=== PATIENT | male | born 1955 | race Caucasian/White ===

== ENCOUNTER 2016-09-29 | Outpatient (CLI) | payer OTHER | END 2016-09-29 23:22 | disposition critical access hospital (66) | CPT/HCPCS: A0425; A0427 ==

== ENCOUNTER 2016-09-29 23:41 | Emergency (ER) | payer OTHER ==
[2016-09-30] MEDS ORDERED: ONDANSETRON 4 MG/2 ML VIAL ONE (00:11)
[2016-09-30] MEDS ORDERED: SODIUM CHLORIDE 0.9% 500 ML IV STA (00:13)
[2016-09-30] MEDS ORDERED: ONDANSETRON 4 MG/2 ML VIAL IVP STA (00:13)
[2016-09-30] MEDS ORDERED: POTASSIUM BICARB 25 MEQ TABLET PO ONE (07:09)
[2016-09-30] MEDS ORDERED: POTASSIUM BICARB 25 MEQ TABLET PO STA (07:09)
== END 2016-09-30 07:21 | disposition home or self-care (01) ==
DX: R11.2 Nausea with vomiting, unspecified (principal); R19.7 Diarrhea, unspecified; R53.1 Weakness; I10 Essential (primary) hypertension; E78.00 Pure hypercholesterolemia, unspecified; I25.2 Old myocardial infarction; J44.9 Chronic obstructive pulmonary disease, unspecified; G47.30 Sleep apnea, unspecified; E11.9 Type 2 diabetes mellitus without complications; Z79.84 Long term (current) use of oral hypoglycemic drugs; Z86.73 Personal history of transient ischemic attack (TIA), and cerebral infarction without residual deficits; Z87.891 Personal history of nicotine dependence
CPT/HCPCS: 36415; 51701; 71020; 80053; 81003; 83690; 85025; 96374; 99284; A9270

== ENCOUNTER 2016-10-14 16:25 | Outpatient (CLI) | payer MEDICARE, OTHER | END 2016-10-14 16:26 | disposition home or self-care (01) | DX: E11.9 Type 2 diabetes mellitus without complications (principal) ==

== ENCOUNTER 2016-10-20 14:30 | Outpatient (CLI) | payer MEDICARE, OTHER | END 2016-10-20 14:31 | disposition home or self-care (01) | DX: K52.9 Noninfective gastroenteritis and colitis, unspecified (principal) ==

== ENCOUNTER 2016-11-18 10:00 | Outpatient (CLI) | payer MEDICARE, OTHER | END 2016-11-18 10:01 | disposition home or self-care (01) | DX: D72.829 Elevated white blood cell count, unspecified (principal) ==

== ENCOUNTER 2016-11-26 10:22 | Outpatient (CLI) | payer MEDICARE ==
[2016-11-26] MEDS ORDERED: IOVERSOL-300 50 ML VIAL PO ONE (12:56)
[2016-11-26] MEDS ORDERED: IOPAMIDOL-300 100 ML VIAL IVP ONE (12:56)
== END 2016-11-26 10:23 | disposition home or self-care (01) ==
DX: N20.0 Calculus of kidney (principal); Q27.8 Other specified congenital malformations of peripheral vascular system; Q61.02 Congenital multiple renal cysts; E27.9 Disorder of adrenal gland, unspecified
CPT/HCPCS: 71260; 74177; Q9967

== ENCOUNTER 2016-12-08 11:54 | Outpatient (CLI) | payer MEDICARE ==
[2016-12-08] MEDS ORDERED: GADOBUTROL 15 MMOL/15 ML VIAL IVP ONE (13:44)
== END 2016-12-08 11:55 | disposition home or self-care (01) ==
DX: Q61.02 Congenital multiple renal cysts (principal); E27.9 Disorder of adrenal gland, unspecified; K76.0 Fatty (change of) liver, not elsewhere classified
CPT/HCPCS: 74183; 80053; A9585

== ENCOUNTER 2016-12-17 09:29 | Outpatient (CLI) | payer MEDICARE ==
--- NOTE | 2016-12-17 12:24 | Ultrasound Report ---
RENAL ULTRASOUND: 12/17/2016 CLINICAL INDICATION: Possible hyperdense right renal cyst on CT of 11/26/2016. TECHNIQUE: Real-time sonographic vascular imaging was performed by the machine packer through the kidney s utilizing both color-flow and Doppler spectral analysis. Multiple patient financial representative static images wer e saved for review. FINDINGS: The right kidney measures 11.4 x 5.7 x 5.8 cm. An 1.3 cm calculus is noted in the lower po le collecting system. Cortical cysts are noted, with the largest measuring 2.4 cm. No solid renal mas s is appreciated. The left kidney measures 12.8 x 5.9 x 5.0 cm. Cortical cysts are present. No hydronephrosis is seen. Prevoid, the bladder measures 13.0 x 9.9 x 7.8 cm, yielding a prevoid volume of 526 mL. Bilateral ure teral jets are visualized. Postvoid residual is 434 mL. IMPRESSION: 1. RENAL CORTICAL CYSTS. NO SOLID RENAL MASS IS APPRECIATED. 2. RIGHT NEPHROLITHIASIS. 3. A 434 mL POSTVOID RESIDUAL. JOB #: [id number] EXT JOB #:[id number]
== END 2016-12-17 09:30 | disposition home or self-care (01) ==
LOC: DI 09:29
PROVIDERS: ATTEND Physician Assistant Medical
DX: N28.1 Cyst of kidney, acquired (principal); N20.0 Calculus of kidney
CPT/HCPCS: 76770

== ENCOUNTER 2017-01-13 13:15 | Outpatient (CLI) | payer MEDICARE ==
[2017-01-13 19:19] LABS: ALBUMIN/GLOBULIN RATIO 1.3 (1.0-2.2); BILIRUBIN,TOTAL 0.5 mg/dL (0.2-1.0); CALCIUM 9.6 mg/dL (8.5-10.3); CREATININE 0.9 mg/dL (0.6-1.2); POTASSIUM 3.5 mmol/L (3.5-5.0); TOTAL PROTEIN 7.9 g/dL (6.7-8.2)
[2017-01-13 19:27] LABS: BASOPHILS % (AUTO) 0.4 %; EOSINOPHILS # (AUTO) 0.3 10^3/uL (0.0-0.7); EOSINOPHILS % (AUTO) 2.5 %; HCT - HEMATOCRIT 45.7 % (42.0-52.0); HGB - HEMOGLOBIN 15.2 g/dL (14.0-18.0); LYMPHOCYTES % (AUTO) 33.9 %; MEAN CORPUSCULAR HEMOGLOBIN 29.8 pg (27.0-31.0); MEAN CORPUSCULAR HGB CONC 33.2 g/dL (32.0-36.0); MEAN CORPUSCULAR VOLUME 89.8 fL (80.0-94.0); MEAN PLATELET VOLUME 7.5 fL (7.4-11.4); MONOCYTES % (AUTO) 8.3 %; NEUTROPHILS # (AUTO) 6.4 10^3/uL (1.5-6.6); NEUTROPHILS % (AUTO) 54.9 %; NUCLEATED RED BLOOD CELLS AUTO 0.1 /100WBC; RED BLOOD COUNT 5.09 10^6/uL (4.70-6.10); RED CELL DISTRIBUTION WIDTH 13.5 % (12.0-15.0); UNCORRECTED WHITE BLOOD COUNT 11.7 x10^3/uL; WHITE BLOOD COUNT 11.7 x10^3/uL (4.8-10.8)
== END 2017-01-13 13:16 | disposition home or self-care (01) ==
LOC: LAB.WCP 13:15
PROVIDERS: ATTEND Physician Assistant Medical
DX: E11.9 Type 2 diabetes mellitus without complications (principal); D72.829 Elevated white blood cell count, unspecified; N39.0 Urinary tract infection, site not specified
CPT/HCPCS: 36415; 80053; 85025; 87077; 87086

== ENCOUNTER 2017-04-16 12:02 | Outpatient (CLI) | payer MEDICARE ==
[2017-04-16 19:44] LABS: BUN - BLOOD UREA NITROGEN 17 mg/dL (6-20); CALCIUM 9.2 mg/dL (8.5-10.3); CARBON DIOXIDE - CO2 27 mmol/L (21-32); CHLORIDE 98 mmol/L (101-111); CHOL/HDL RATIO 3.1 (<5.0); CHOLESTEROL 119 mg/dL; CREATININE 0.7 mg/dL (0.6-1.2); GFR - MDRD 114 (>89); GLUCOSE 153 mg/dL (70-100); HDL CHOLESTEROL 39 mg/dL; HEMOGLOBIN A1C 0.88 g/dL; LDL/HDL RATIO 1.3 (<3.6); POTASSIUM 3.6 mmol/L (3.5-5.0); SODIUM 135 mmol/L (135-145); TRIGLYCERIDES 152 mg/dL; VLDL CHOLESTEROL 30 mg/dL
== END 2017-04-16 12:03 | disposition home or self-care (01) ==
LOC: LAB.WCP 12:02
PROVIDERS: ATTEND Physician Assistant Medical
DX: E11.9 Type 2 diabetes mellitus without complications (principal); E78.00 Pure hypercholesterolemia, unspecified
CPT/HCPCS: 36415; 80048; 80061; 82043; 83036

== ENCOUNTER 2017-09-10 08:00 | Outpatient (CLI) | payer MEDICARE | END 2017-09-10 08:01 | disposition home or self-care (01) | LOC: LAB.WCP 08:00 | PROVIDERS: ATTEND Physician Assistant Medical | DX: E83.42 Hypomagnesemia (principal) | CPT/HCPCS: 36415; 83735 ==

== ENCOUNTER 2017-09-28 10:12 | Outpatient (CLI) | payer MEDICARE ==
[2017-09-28 13:12] LABS: CALCIUM 9.6 mg/dL (8.5-10.3); CREATININE 0.7 mg/dL (0.6-1.2); MAGNESIUM 1.6 mg/dL (1.7-2.8)
[2017-09-28 13:25] LABS: HB2 TOTAL 15.7 g/dL; HEMOGLOBIN A1C 0.96 g/dL; HEMOGLOBIN A1C % 7.7 % (4.6-6.2)
== END 2017-09-28 10:13 | disposition home or self-care (01) ==
LOC: LAB.WCP 10:12
PROVIDERS: ATTEND Physician Assistant Medical
DX: E11.9 Type 2 diabetes mellitus without complications (principal); E83.42 Hypomagnesemia
CPT/HCPCS: 36415; 80048; 83036; 83735

== ENCOUNTER 2017-10-14 08:00 | Outpatient (CLI) | payer MEDICARE | END 2017-10-14 23:59 | disposition home or self-care (01) | LOC: LAB.WCP 08:00 | PROVIDERS: ATTEND Physician Assistant Medical | DX: L03.039 Cellulitis of unspecified toe (principal) | CPT/HCPCS: 87070; 87077; 87205 ==

== ENCOUNTER 2018-10-14 23:51 | Outpatient (CLI) | payer MEDICARE | END 2018-10-14 23:52 | disposition critical access hospital (66) | LOC: EMS 23:51 | PROVIDERS: ATTEND Surgery | DX: R53.1 Weakness (principal); R11.2 Nausea with vomiting, unspecified; R26.89 Other abnormalities of gait and mobility | CPT/HCPCS: A0425; A0427 ==

== ENCOUNTER 2018-10-15 00:08 | Emergency (ER) | payer MEDICARE ==
--- NOTE | 2018-10-15 01:00 | XRAY Report ---
Reason: fall, knee painn Procedure Date: 10/15/2018 Accession Number: [id number] / [id number] Procedure: XR - Knee 2 View BILAT CPT Code: FULL RESULT: EXAMS: 1. Right Knee Radiography 2. Left Knee Radiography EXAM DATE:10/15/2018 12:54 AM. CLINICAL HISTORY:Fall, knee pain. COMPARISON: None. TECHNIQUE: 2 views each. FINDINGS: Right Knee: Bones: No fracture seen. Joints: No dislocation. Minimal degenerative changes. No joint effusion seen. Soft Tissues: Mild soft tissue swelling. Left Knee: Bones: No fracture seen. Joints: No dislocation. Minimal degenerative changes. No joint effusion seen. Soft Tissues: Mild soft tissue swelling. IMPRESSION: No acute bony abnormality. RADIA
[2018-10-15 01:02] LABS: BASOPHILS # (AUTO) 0.1 10^3/uL (0.0-0.1); BASOPHILS % (AUTO) 1.1 %; EOSINOPHILS # (AUTO) 0.2 10^3/uL (0.0-0.7); EOSINOPHILS % (AUTO) 1.5 %; HGB - HEMOGLOBIN 13.3 g/dL (14.0-18.0); LYMPHOCYTES # (AUTO) 1.8 10^3/uL (1.5-3.5); LYMPHOCYTES % (AUTO) 13.1 %; MEAN CORPUSCULAR HEMOGLOBIN 29.7 pg (27.0-31.0); MEAN CORPUSCULAR HGB CONC 34.5 g/dL (32.0-36.0); MEAN PLATELET VOLUME 7.1 fL (7.4-11.4); MONOCYTES # (AUTO) 1.3 10^3/uL (0.0-1.0); NEUTROPHILS # (AUTO) 10.4 10^3/uL (1.5-6.6); NEUTROPHILS % (AUTO) 75.3 %; PLT - PLATELET COUNT 447 10^3/uL (130-450); RED BLOOD COUNT 4.49 10^6/uL (4.70-6.10); RED CELL DISTRIBUTION WIDTH 13.1 % (12.0-15.0); WHITE BLOOD COUNT 13.9 x10^3/uL (4.8-10.8)
[2018-10-15 01:11] LABS: ALBUMIN/GLOBULIN RATIO 1.3 (1.0-2.2); BILIRUBIN,TOTAL 0.4 mg/dL (0.2-1.0); CALCIUM 8.6 mg/dL (8.5-10.3); CREATININE 0.7 mg/dL (0.6-1.2)
[2018-10-15] MEDS ORDERED: POTASSIUM CHLORIDE 20 MEQ TABLET PO STA (01:30)
--- NOTE | 2018-10-15 02:26 | ED Physician Documentation ---
History of Present Illness - Stated complaint Stated Complaint: GLF - Chief complaint Chief Complaint: General - Additonal information Additional information: 62-year-old male who was sent in from the half-way after falling and striking both of his knees.The patient was unable to get up secondary to the pain in his knees. The patient does report feeling generally weak today. The patient denies head injury, headache, neck pain, torso trauma or upper extremity trauma. The patient reports feeling generally weak but is nondescript. The patient denies chest pain, shortness of breath, cough, fevers, dysuria, hematuria, flank pain. Symptoms are described as moderate. The patient did get nauseated and vomit today. Review of Systems Constitutional: denies: Fever Eyes: denies: Discharge Ears: denies: Ear pain Throat: denies: Sore throat Cardiac: denies: Chest pain / pressure Respiratory: denies: Dyspnea GI: denies: Abdominal Pain : denies: Dysuria Skin: denies: Rash Musculoskeletal: reports: Extremity pain Neurologic: reports: Generalized weakness PD PAST MEDICAL HISTORY - Past Medical History Past Medical History: Yes Cardiovascular: Hypertension, High cholesterol, [place], Other Respiratory: COPD, Sleep apnea, CPAP use Neuro: CVA Endocrine/Autoimmune: Type 2 diabetes - Past Surgical History Past Surgical History: Yes General: Appendectomy, Other - Present Medications Home Medications: Ambulatory Orders Medication Instructions Recorded Confirmed Atenolol 100 mg PO DAILY 02/07/15 10/15/18 Chlorthalidone 25 mg PO DAILY 02/07/15 10/15/18 Clopidogrel Bisulfate [Plavix] 75 mg PO DAILY 02/07/15 10/15/18 Metformin HCl 1,000 mg PO BIDWM 02/07/15 10/15/18 Amitriptyline [Elavil] 50 mg PO QPM 07/31/15 10/15/18 Lisinopril 10 mg PO DAILY 07/31/15 10/15/18 Potassium Chloride 20 meq PO TIDWM 07/31/15 10/15/18 Simvastatin 80 mg PO QPM 07/31/15 10/15/18 Insulin Glargine [Lantus Solostar] 10 unit SUBQ DAILY PM 02/02/18 10/15/18 Glimepiride [Amaryl] 0 mg PO BID 10/15/18 10/15/18 - Allergies Allergies/Adverse Reactions: Allergies Allergy/AdvReac Type Severity Reaction Status Date / Time erythromycin base Allergy Hives Verified 10/15/18 00:14 - Social History Does the pt smoke?: No Smoking Status: Former smoker Does the pt drink ETOH?: No Does the pt have substance abuse?: No - Immunizations Immunizations are current?: Yes - POLST Patient has POLST: No PD ED PE NORMAL - General General: Alert and oriented X 3, No acute distress - HEENT HEENT: Atraumatic, PERRL, EOMI, Ears normal - Neck Neck: No bony TTP - Cardiac Cardiac: RRR - Respiratory Respiratory: No respiratory distress - Abdomen Abdomen: Soft, Non tender - Derm Derm: Normal color - Extremities Extremities: No deformity, Normal ROM s pain. No: No tenderness to palpate (The patient has no tenderness of the upper extremity joints, the patient does have tenderness of the bilateral knees, there is no deformities and the patient has normal range of motion of the lower extremities.) - Neuro Neuro: Alert and oriented X 3, Normal speech Results - Vitals Vitals: Vital Signs - 24 hr 10/15/18 10/15/18 10/15/18 00:10 00:17 01:50 Temperature 37.0 C Heart Rate 86 86 92 Respiratory 16 16 Rate Blood Pressure 129/79 134/79 H O2 Saturation 96 95 Oxygen O2 Source [With Activity] Room air O2 Source [Without Activity] Room air O2 Source Room air - Labs Labs: Laboratory Tests 10/15/18 10/15/18 10/15/18 00:55 00:55 01:22 WBC 13.9 H RBC 4.49 L Hgb 13.3 L Hct 38.7 L MCV 86.0 MCH 29.7 MCHC 34.5 RDW 13.1 Plt Count 447 MPV 7.1 L Neut # (Auto) 10.4 H Lymph # (Auto) 1.8 [place] # (Auto) 1.3 H Eos # (Auto) 0.2 Baso # (Auto) 0.1 Absolute Nucleated RBC 0.00 Nucleated RBC % 0.0 Sodium 127 L Potassium 2.9 L Chloride 89 L Carbon Dioxide 24 Anion Gap 14.0 H BUN 14 Creatinine 0.7 Estimated GFR (MDRD) 114 Glucose 212 H Calcium 8.6 Total Bilirubin 0.4 AST 39 ALT 39 Alkaline Phosphatase 56 Total Protein 7.0 Albumin 4.0 Globulin 3.0 Albumin/Globulin Ratio 1.3 Lipase 21 L Influenza A (Rapid) Negative Influenza B (Rapid) Negative - Rads (name of study) XR knee b/l Radiology: Final report received, See rad report PD MEDICAL DECISION MAKING - ED course ED course: The patient has chronic hyponatremia and Hypokalemia, both of which do not require admission to the hospital. Presently, on reevaluation the patient is resting comfortably and appears appropriate for discharge and ongoing outpatient management. I discussed the findings and plan and the patient understands and agrees. I discussed warning signs and recommended returning to the emergency department for any worsening or any concerns Departure - Departure Disposition: 01 Home, Self Care Clinical Impression: Weakness, Hypokalemia, Hyponatremia Fall Qualifiers: Encounter type: initial encounter Qualified Code(s): W19.XXXA - Unspecified fall, initial encounter Knee pain, bilateral Qualifiers: Chronicity: acute Qualified Code(s): M25.561 - Pain in right knee Condition: Good Instructions: Hypokalemia Dc, Hyponatremia Dc, Diet High Potassium Dc, ED Contusion Lower Ext Follow-Up: Heaven Baker PA-C [Primary Care Provider] - Within 1 week Comments: Please return to the emergency department for worsening symptoms or any concerns
[2018-10-15 03:18] VITALS: BP 130/75
== END 2018-10-15 03:57 | disposition home or self-care (01) ==
LOC: EDUNIT# → ED 00:08
DX: R53.1 Weakness (principal); E87.1 Hypo-osmolality and hyponatremia; E87.6 Hypokalemia; M25.561 Pain in right knee; I10 Essential (primary) hypertension; E78.00 Pure hypercholesterolemia, unspecified; I25.2 Old myocardial infarction; E11.9 Type 2 diabetes mellitus without complications; Z79.4 Long term (current) use of insulin; Z86.73 Personal history of transient ischemic attack (TIA), and cerebral infarction without residual deficits; Z87.891 Personal history of nicotine dependence
CPT/HCPCS: 36415; 73565; 80053; 83690; 85025; 87275; 87276; 93005; 99283; A9270

== ENCOUNTER 2018-10-31 18:51 | Outpatient (CLI) | payer SELFPAY | END 2018-10-31 18:52 | disposition EMS.NT | LOC: EMS 18:51 | PROVIDERS: ATTEND Surgery | DX: Z03.89 Encounter for observation for other suspected diseases and conditions ruled out (principal) ==

== ENCOUNTER 2019-08-08 21:49 | Outpatient (CLI) | payer SELFPAY | END 2019-08-08 21:50 | disposition EMS.NT | LOC: EMS 21:49 | PROVIDERS: ATTEND Surgery | DX: M54.5 Low back pain (principal); W01.0XXA Fall on same level from slipping, tripping and stumbling without subsequent striking against object, initial encounter; Y92.099 Unspecified place in other non-institutional residence as the place of occurrence of the external cause ==

== ENCOUNTER 2019-08-11 22:22 | Outpatient (CLI) | payer SELFPAY | END 2019-08-11 22:23 | disposition EMS.NT | LOC: EMS 22:22 | PROVIDERS: ATTEND Surgery | DX: Z03.89 Encounter for observation for other suspected diseases and conditions ruled out (principal) ==

== ENCOUNTER 2019-09-18 23:00 | Outpatient (CLI) | payer SELFPAY | END 2019-09-18 23:01 | disposition EMS.NT | LOC: EMS 23:00 | PROVIDERS: ATTEND Surgery | DX: Z03.89 Encounter for observation for other suspected diseases and conditions ruled out (principal) ==

== ENCOUNTER 2019-10-19 19:08 | Outpatient (CLI) | payer MEDICARE | END 2019-10-19 19:09 | disposition critical access hospital (66) | LOC: EMS 19:08 | PROVIDERS: ATTEND Surgery | DX: R47.81 Slurred speech (principal); R29.810 Facial weakness | CPT/HCPCS: A0425; A0429 ==

== ENCOUNTER 2019-10-19 19:27 | Emergency (ER) | payer MEDICARE ==
--- NOTE | 2019-10-19 19:31 | ED Physician Documentation ---
History of Present Illness - Stated complaint Stated Complaint: ? STROKE - History obtained from History obtained from: Patient, Caregiver (The patient is a 63-year-old male who presents to the ER with slurred speech. Patient was with his caregiver tonight when he had sudden onset at 6:45 PM of slurred speech and weakness. The caregiver then brought the patient to the ER for further evaluation. 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 He is chronically wheelchair-bound.EMS reports blood sugar was 220 prior to arrival he is an insulin-dependent diabetic.) Review of Systems Unable to obtain: AMS PD PAST MEDICAL HISTORY - Past Medical History Cardiovascular: Hypertension, High cholesterol, [place], Other Respiratory: COPD, Sleep apnea, CPAP use Neuro: CVA Endocrine/Autoimmune: Type 2 diabetes - Past Surgical History Past Surgical History: Yes General: Appendectomy, Other - Present Medications Home Medications: Ambulatory Orders Medication Instructions Recorded Confirmed Chlorthalidone 25 mg PO DAILY 02/07/15 10/15/18 Clopidogrel Bisulfate [Plavix] 75 mg PO DAILY 02/07/15 10/15/18 Metformin HCl 1,000 mg PO BIDWM 02/07/15 10/15/18 atenoloL [Atenolol] 100 mg PO DAILY 02/07/15 10/15/18 Amitriptyline [Elavil] 50 mg PO QPM 07/31/15 10/15/18 Potassium Chloride 20 meq PO TIDWM 07/31/15 10/15/18 Simvastatin 80 mg PO QPM 07/31/15 10/15/18 lisinopriL [Lisinopril] 10 mg PO DAILY 07/31/15 10/15/18 Insulin Glargine [Lantus Solostar] 10 unit SUBQ DAILY PM 02/02/18 10/15/18 Glimepiride [Amaryl] 0 mg PO BID 10/15/18 10/15/18 - Allergies Allergies/Adverse Reactions: Allergies Allergy/AdvReac Type Severity Reaction Status Date / Time erythromycin base Allergy Hives Verified 10/19/19 19:37 - Social History Does the pt smoke?: No Smoking Status: Former smoker Does the pt drink ETOH?: No Does the pt have substance abuse?: No - Immunizations Immunizations are current?: Yes - POLST Patient has POLST: No PD ED PE NORMAL - Vitals Vital signs reviewed: Yes - General General: No acute distress, Well developed/nourished, Other (The patient is minimally responsive is lethargic has slurred speech no obvious facial droop he is not alert is disoriented to person time and place.) - HEENT HEENT: Atraumatic, PERRL, Moist mucous membranes - Neck Neck: Supple, no meningeal sign, No JVD - Cardiac Cardiac: RRR, No murmur, Strong equal pulses - Respiratory Respiratory: No respiratory distress, Clear bilaterally - Abdomen Abdomen: Normal bowel sounds, Soft, Non tender, Non distended, No organomegaly - Male Male : Other (Chronic indwelling Hood catheter) - Back Back: No spinal TTP - Derm Derm: Warm and dry, No rash - Extremities Extremities: No deformity, Other - Neuro Neuro: Alert and oriented X 3, student records coordinator 2-12 intact, No motor deficit, No sensory deficit, Other (some mild delayed speech but after reevaluating has clear speech with no facial droop, no unilateral weakness. NIH 1 for mild dysphasia.) - Psych Psych: Normal mood, Normal affect Results - Vitals Vitals: Vital Signs - 24 hr 10/19/19 10/19/19 10/19/19 19:26 19:58 20:22 Temperature 36.6 C Heart Rate 81 79 81 Respiratory 18 18 18 Rate Blood Pressure 127/74 121/71 131/71 H O2 Saturation 97 98 98 10/19/19 10/20/19 10/20/19 21:32 00:00 01:20 Temperature Heart Rate 84 70 90 Respiratory 17 16 16 Rate Blood Pressure 128/70 133/71 H 107/56 L O2 Saturation 98 97 96 10/20/19 03:33 Temperature Heart Rate Respiratory 16 Rate Blood Pressure O2 Saturation Oxygen O2 Source [] Room air O2 Source [] Room air O2 Source Room air - EKG (time done) 19:30 Rate: Other (no stemi) - Labs Labs: Laboratory Tests 10/19/19 10/19/19 10/19/19 20:12 20:12 20:12 WBC 13.6 H RBC 4.37 L Hgb 13.4 L Hct 38.3 L MCV 87.6 MCH 30.7 MCHC 35.0 RDW 12.5 Plt Count 566 H MPV 8.6 Neut # (Auto) 8.2 H Lymph # (Auto) 3.6 H [place] # (Auto) 1.1 H Eos # (Auto) 0.5 Baso # (Auto) 0.1 Absolute Nucleated RBC 0.00 Nucleated RBC % 0.0 PT 13.9 H INR 1.2 APTT 29.0 Sodium 130 L Potassium 2.9 L Chloride 90 L Carbon Dioxide 27 Anion Gap 13.0 BUN 12 Creatinine 0.7 Estimated GFR (MDRD) 114 Glucose 195 H Lactic Acid Calcium 8.6 Total Bilirubin 0.2 AST 42 ALT 50 Alkaline Phosphatase 43 Total Creatine Kinase 161 B-Natriuretic Peptide Total Protein 7.3 Albumin 4.0 Globulin 3.3 Albumin/Globulin Ratio 1.2 Lipase 23 TSH Urine Color Urine Clarity Urine pH Ur Specific [place] Urine Protein Urine Glucose (UA) Urine Ketones Urine Occult Blood Urine Nitrite Urine Bilirubin Urine Urobilinogen Ur Leukocyte Esterase Urine RBC Urine WBC Ur Squamous Epith Cells Amorphous Sediment Urine Bacteria Ur Microscopic Review Urine Culture Comments Salicylates < 6.0 Acetaminophen < 10 L Ur Phencyclidine Scrn U Methamphetamines Scrn Urine Cocaine Screen U Cannabinoids Screen Ethyl Alcohol < 5.0 10/19/19 10/19/19 10/19/19 20:12 20:12 20:12 WBC RBC Hgb Hct MCV MCH MCHC RDW Plt Count MPV Neut # (Auto) Lymph # (Auto) [place] # (Auto) Eos # (Auto) Baso # (Auto) Absolute Nucleated RBC Nucleated RBC % PT INR APTT Sodium Potassium Chloride Carbon Dioxide Anion Gap BUN Creatinine Estimated GFR (MDRD) Glucose Lactic Acid 2.5 H Calcium Total Bilirubin AST ALT Alkaline Phosphatase Total Creatine Kinase B-Natriuretic Peptide 10 Total Protein Albumin Globulin Albumin/Globulin Ratio Lipase TSH 0.77 Urine Color Urine Clarity Urine pH Ur Specific [place] Urine Protein Urine Glucose (UA) Urine Ketones Urine Occult Blood Urine Nitrite Urine Bilirubin Urine Urobilinogen Ur Leukocyte Esterase Urine RBC Urine WBC Ur Squamous Epith Cells Amorphous Sediment Urine Bacteria Ur Microscopic Review Urine Culture Comments Salicylates Acetaminophen Ur Phencyclidine Scrn U Methamphetamines Scrn Urine Cocaine Screen U Cannabinoids Screen Ethyl Alcohol 10/19/19 20:13 WBC RBC Hgb Hct MCV MCH MCHC RDW Plt Count MPV Neut # (Auto) Lymph # (Auto) [place] # (Auto) Eos # (Auto) Baso # (Auto) Absolute Nucleated RBC Nucleated RBC % PT INR APTT Sodium Potassium Chloride Carbon Dioxide Anion Gap BUN Creatinine Estimated GFR (MDRD) Glucose Lactic Acid Calcium Total Bilirubin AST ALT Alkaline Phosphatase Total Creatine Kinase B-Natriuretic Peptide Total Protein Albumin Globulin Albumin/Globulin Ratio Lipase TSH Urine Color LIGHT YELLOW Urine Clarity HAZY Urine pH 7.0 Ur Specific [place] <=1.005 Urine Protein NEGATIVE Urine Glucose (UA) NEGATIVE Urine Ketones NEGATIVE Urine Occult Blood NEGATIVE Urine Nitrite NEGATIVE Urine Bilirubin NEGATIVE Urine Urobilinogen 0.2 (NORMAL) Ur Leukocyte Esterase MODERATE H Urine RBC 3 Urine WBC 4-5 Ur Squamous Epith Cells MOD Squamous H Amorphous Sediment Marked Urine Bacteria Rare Ur Microscopic Review INDICATED Urine Culture Comments NOT INDICATED Salicylates Acetaminophen Ur Phencyclidine Scrn NEGATIVE U Methamphetamines Scrn NEGATIVE Urine Cocaine Screen NEGATIVE U Cannabinoids Screen NEGATIVE Ethyl Alcohol PD MEDICAL DECISION MAKING - ED course Complexity details: reviewed results, re-evaluated patient (23:00 Patient reexamined, he is now awake, alert, oriented he has clear speech he moves all extremities with no gross Neurological deficit.I did explain to the patient is results of imaging and labs and showed that there is no signs of an acute stroke had an extensive conversation with the neurologist at [facility] neurology, Dr. Varghese Who states "I absolutely not accept this patient" and advises to send this paient home to have a non emergent MRI of the brain. I explained this to the patient, the patient has a NIH of 0 currently and is agreeable to be sent back home. ), considered differential (TIA, CVA, metabolic encephalopathy. ), d/w patient, other - Consults Consults: Consulted (name) (23:00 DR. JARRELL. No technical system analyst available. patient cannot be admitted here. ), Discussed case with (23:[address] Varghese the neurologist at [facility] who will not accept this patient and states to send this patient home and can follow up as an outpatient to get non emergent MRI. ) - Critical Care Time(min): 30 Time Includes: Direct patient care, Review records, Reassess patient, Document c are, Coordinate care, Medical consult, See progress note Data interpretation: Labs, Pulse ox, CXR Procedures included in critical care time: Peripheral IV Departure - Departure Disposition: 01 Home, Self Care Clinical Impression: TIA (transient ischemic attack) Condition: Fair Instructions: TIA Follow-Up: COCO SARKAR [Primary Care Provider] - Tomorrow
[2019-10-19] MEDS ORDERED: IOVERSOL 320 100 ML VIAL IVP ONE ×2 (19:43→20:07)
--- NOTE | 2019-10-19 20:10 | CT Report ---
Reason: stroke Procedure Date: 10/19/2019 Accession Number: [id number] / [id number] Procedure: CT - Head W/O Stroke Protocol CPT Code: Final Report FULL RESULT: EXAM: CT HEAD EXAM DATE: 10/19/2019 07:53 PM. CLINICAL HISTORY: 53-year-old presenting with slurred speech. Evaluate for intracranial pathology. COMPARISON: None. TECHNIQUE: Multiaxial CT images were obtained from the foramen magnum to the vertex. Reformats: Sagittal and coronal. IV contrast: None. In accordance with CT protocol optimization, one or more of the following dose reduction techniques were utilized for this exam: automated exposure control, adjustment of mA and/or KV based on patient size, or use of iterative reconstructive technique. FINDINGS: Parenchyma: No acute parenchymal hemorrhage, mass, or midline shift. There is large volume encephalomalacia and gliosis involving the right temporal lobe extending to the right temporal parietal region with involvement of the right parietal lobe. There is small to moderate volume encephalomalacia and gliosis of the left frontal lobe. There are additional mild bilateral areas of white matter hypoattenuation seen that are age indeterminate but appear chronic. There is no convincing CT evidence of acute infarct. Extraaxial Spaces: Sulci and cisterns appear prominent but appropriate for the extent of volume loss. No subdural or epidural collections identified. Ventricles: Ex vacuo dilatation of the atrium trigone of the right lateral ventricle. No evidence of hydrocephalus. No evidence of intra-ventricular hemorrhage. Sinuses and Orbits: The orbits appear normal. Minimal mucosal thickening of the left sphenoid sinus. Mastoid air cells and middle ear cavities appear clear. Bones: No evidence of fracture or calvarial defect. Other: Vascular calcifications of the cavernous ICA segments. IMPRESSION: 1. No definite acute infarct seen. If there is clinical concern for acute stroke or if symptoms persist, an MR brain could be considered to evaluate small or subtle pathology. ASPECTS: 10 right/10 left. 2. No acute intracranial hemorrhage, mass, hydrocephalus, or midline shift. 3. Large right MCA territory encephalomalacia and gliosis as well as small to moderate left MCA territory encephalomalacia and gliosis likely representing regions of prior infarct. Additional white matter changes seen that appear chronic suggesting potential sequela of chronic small vessel ischemic disease. RADIA The critical test notification system was initiated by Dr. Eduar Ayala at 08:08 PM on 10/19/2019. The above critical test findings were discussed with Mook Huynh by Dr. Eduar Ayala at 08:11 PM on 10/19/2019.
[2019-10-19 20:18] LABS: MUDS CUTOFF CONCENTRATIONS CUTOFF CONC BELOW:
[2019-10-19 20:18] LABS: BASOPHILS # (AUTO) 0.1 10^3/uL (0.0-0.1); BASOPHILS % (AUTO) 0.7 %; EOSINOPHILS # (AUTO) 0.5 10^3/uL (0.0-0.7); EOSINOPHILS % (AUTO) 3.8 %; HGB - HEMOGLOBIN 13.4 g/dL (14.0-18.0); LYMPHOCYTES # (AUTO) 3.6 10^3/uL (1.5-3.5); LYMPHOCYTES % (AUTO) 26.3 %; MEAN CORPUSCULAR HEMOGLOBIN 30.7 pg (27.0-31.0); MEAN CORPUSCULAR VOLUME 87.6 fL (80.0-94.0); MEAN PLATELET VOLUME 8.6 fL (7.4-11.4); MONOCYTES # (AUTO) 1.1 10^3/uL (0.0-1.0); NEUTROPHILS # (AUTO) 8.2 10^3/uL (1.5-6.6); NEUTROPHILS % (AUTO) 60.4 %; PLT - PLATELET COUNT 566 10^3/uL (130-450); RED BLOOD COUNT 4.37 10^6/uL (4.70-6.10); RED CELL DISTRIBUTION WIDTH 12.5 % (12.0-15.0); WHITE BLOOD COUNT 13.6 x10^3/uL (4.8-10.8)
[2019-10-19 20:22] LABS: BILIRUBIN,URINE NEGATIVE (NEGATIVE); GLUCOSE, URINE (UA) NEGATIVE (NEGATIVE); KETONES,URINE (UA) NEGATIVE (NEGATIVE); LEUKOCYTE ESTERASE, URINE MODERATE (NEGATIVE); NITRITE,URINE NEGATIVE (NEGATIVE); OCCULT BLOOD,URINE NEGATIVE (NEGATIVE); PROTEIN,URINE NEGATIVE (NEGATIVE); UROBILINOGEN,URINE 0.2 (NORMAL) E.U./dL (NORMAL)
[2019-10-19 20:24] LABS: INR 1.2 (0.8-1.2); PT - PROTHROMBIN TIME 13.9 secs (9.9-12.6)
--- NOTE | 2019-10-19 20:24 | XRAY Report ---
Reason: stroke Procedure Date: 10/19/2019 Accession Number: [id number] / [id number] Procedure: XR - Chest 1 View X-Ray CPT Code: 86401 Final Report FULL RESULT: EXAM: CHEST RADIOGRAPHY EXAM DATE: 10/19/2019 08:05 PM. CLINICAL HISTORY: Stroke. COMPARISON: CHEST 2 VIEW PA/LAT 09/30/2016 12:26 AM. TECHNIQUE: 1 view. FINDINGS: Lungs/Pleura: No focal opacities evident. No pleural effusion. No pneumothorax. Mediastinum: Within exam limitations, the cardiomediastinal contour is normal. Other: None. IMPRESSION: Negative chest. RADIA
--- NOTE | 2019-10-19 20:29 | CT Report ---
Reason: L sided facial droop Procedure Date: 10/19/2019 Accession Number: [id number] / [id number] Procedure: CT - ANGIO HEAD W/WO CPT Code: Final Report FULL RESULT: EXAM: CT ANGIOGRAM HEAD AND NECK. CT SCAN HEAD WITH CONTRAST. EXAM DATE: 10/19/2019 07:59 PM. CLINICAL HISTORY: 63-year-old with history of prior stroke presenting with left-sided facial droop. Evaluate for intracranial pathology or vascular pathology. COMPARISON: Noncontrast CT head 10/19/2019. TECHNIQUE: Routine axial helical CTA imaging was performed from the aortic arch through the [place]. Routine axial CT imaging of the head was performed prior to and following contrast administration. Reconstructions: Routine multiplanar 3D MIP reconstructions. IV contrast: 80 mL Optiray 320. NASCET Criteria are used for stenosis measurements. In accordance with CT protocol optimization, one or more of the following dose reduction techniques were utilized for this exam: automated exposure control, adjustment of mA and/or KV based on patient size, or use of iterative reconstructive technique. FINDINGS: CT SCAN HEAD: Parenchyma: No acute parenchymal hemorrhage, mass, or midline shift. There is large volume encephalomalacia and gliosis involving the right temporal lobe extending to the right temporal parietal region with involvement of the right parietal lobe. There is small to moderate volume encephalomalacia and gliosis of the left frontal lobe. There are additional mild bilateral areas of white matter hypoattenuation seen that are age indeterminate but appear chronic. There is no convincing CT evidence of acute infarct. No abnormal postcontrast enhancement. Extraaxial Spaces: Sulci and cisterns appear prominent but appropriate for the extent of volume loss. No subdural or epidural collections identified. Ventricles: Ex vacuo dilatation of the atrium trigone of the right lateral ventricle. No evidence of hydrocephalus. No evidence of intra-ventricular hemorrhage. Sinuses and Orbits: The orbits appear normal. Minimal mucosal thickening of the left sphenoid sinus. Mastoid air cells and middle ear cavities appear clear. Bones: No evidence of fracture or calvarial defect. Other: Vascular calcifications of the cavernous ICA segments. CT ANGIOGRAM HEAD AND NECK: There is atherosclerotic plaque involving the aortic arch with no high-grade stenosis or dissection seen. 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 There is common origin to the carotid arteries. RIGHT: Common Carotid Artery: Patent without significant stenosis. Carotid Bulb: There is minimal atherosclerotic plaque at the carotid bifurcation. Stenosis at the bifurcation by NASCET criteria: No significant stenosis. Internal Carotid Artery: There is vascular plaque involving the cervical ICA as well as tortuosity of the cervical ICA with no high-grade stenosis or dissection seen. There is vascular plaque involving the cavernous ICA segment with no high-grade stenosis seen. No evidence of aneurysm along the intracranial ICA. External Carotid Artery: Unremarkable. Vertebral Artery: Patent without significant stenosis. No evidence of dissection. No aneurysm. Anterior Cerebral Artery: Patent without significant stenosis, aneurysm, or vascular malformation. Middle Cerebral Artery: The M1 and M2 segments appear normal. There is diminutive appearance to distal MCA vessels leading to region of encephalomalacia and gliosis. This is likely chronic. No aneurysm. Posterior Cerebral Artery: Patent without significant stenosis, aneurysm, or vascular malformation. Posterior Communicating Artery: Not definitively seen. No aneurysm. LEFT: Common Carotid Artery: Patent without significant stenosis. Carotid Bulb: There is minimal atherosclerotic plaque at the carotid bifurcation. Stenosis at the bifurcation by NASCET criteria: No significant stenosis. Internal Carotid Artery: Tortuosity of the cervical ICA with no high-grade stenosis or dissection seen. Vascular calcifications of the cavernous ICA segment with no high-grade stenosis seen. No evidence of aneurysm along the intracranial ICA. External Carotid Artery: Unremarkable. Vertebral Artery: The V1 through V3 segments appear patent with no high-grade stenosis seen. There is vascular calcifications involving intradural V4 segment with no high-grade stenosis seen. No evidence of dissection. No aneurysm. Anterior Cerebral Artery: Patent without significant stenosis, aneurysm, or vascular malformation. Middle Cerebral Artery: The M1 and M2 segments appear normal. There is diminutive appearance to M3 frontal polar branch leading to area of encephalomalacia and gliosis. This is likely chronic. No aneurysm. Posterior Cerebral Artery: Patent without significant stenosis, aneurysm, or vascular malformation. Posterior Communicating Artery: Not definitively seen. No aneurysm. CENTRAL: Anterior Communicating Artery: Patent. No aneurysm. Basilar Artery: Patent without significant stenosis. No aneurysm. DURAL VENOUS SINUSES AND MAJOR CENTRAL VEINS: Patent. OTHER: The visualized pharynx and larynx appear normal. The major salivary glands appear normal. The visualized thyroid appears normal. No cervical lymphadenopathy. No necrotic lymph nodes. Soft tissues of the neck appear normal. Pleural-parenchymal scarring of the visualized lung apices. Minimal emphysematous changes. No acute fracture or traumatic subluxation. Multilevel degenerative changes. No suspicious osseous lesion seen. IMPRESSION: CT SCAN HEAD: 1. No definite acute infarct seen. If there is clinical concern for acute stroke or if symptoms persist, an MR brain could be considered to evaluate small or subtle pathology. ASPECTS: 10 right/10 left. 2. No acute intracranial hemorrhage, mass, hydrocephalus, or midline shift. 3. Large right MCA territory encephalomalacia and gliosis as well as small to moderate left MCA territory encephalomalacia and gliosis likely representing regions of prior infarct. Additional white matter changes seen that appear chronic suggesting potential sequela of chronic small vessel ischemic disease. CT ANGIOGRAM NECK: 1. The vasculature of the neck demonstrates no high-grade stenosis or definite dissection. CT ANGIOGRAM HEAD: 1. No large vessel occlusion. 2. No aneurysm. No significant stenosis. RADIA The call report notification system was initiated by Dr. Eduar Ayala at 08:27 PM on 10/19/2019. The above call report findings were discussed with Mook Huynh by Dr. Eduar Ayala at 08:31 PM on 10/19/2019.
--- NOTE | 2019-10-19 20:29 | CT Report ---
Reason: L sided facial droop, L neck pain Procedure Date: 10/19/2019 Accession Number: [id number] / [id number] Procedure: CT - ANGIO NECK W CPT Code: Final Report FULL RESULT: EXAM: CT ANGIOGRAM HEAD AND NECK. CT SCAN HEAD WITH CONTRAST. EXAM DATE: 10/19/2019 07:59 PM. CLINICAL HISTORY: 63-year-old with history of prior stroke presenting with left-sided facial droop. Evaluate for intracranial pathology or vascular pathology. COMPARISON: Noncontrast CT head 10/19/2019. TECHNIQUE: Routine axial helical CTA imaging was performed from the aortic arch through the [place]. Routine axial CT imaging of the head was performed prior to and following contrast administration. Reconstructions: Routine multiplanar 3D MIP reconstructions. IV contrast: 80 cc Optiray 320. NASCET Criteria are used for stenosis measurements. In accordance with CT protocol optimization, one or more of the following dose reduction techniques were utilized for this exam: automated exposure control, adjustment of mA and/or KV based on patient size, or use of iterative reconstructive technique. FINDINGS: CT SCAN HEAD: Parenchyma: No acute parenchymal hemorrhage, mass, or midline shift. There is large volume encephalomalacia and gliosis involving the right temporal lobe extending to the right temporal parietal region with involvement of the right parietal lobe. There is small to moderate volume encephalomalacia and gliosis of the left frontal lobe. There are additional mild bilateral areas of white matter hypoattenuation seen that are age indeterminate but appear chronic. There is no convincing CT evidence of acute infarct. No abnormal postcontrast enhancement. Extraaxial Spaces: Sulci and cistern appear prominent but appropriate for the extent of volume loss. No subdural or epidural collections identified. Ventricles: Ex vacuo dilatation of the atria and trigone of the right lateral ventricle. No evidence of hydrocephalus. No evidence of intra-ventricular hemorrhage. Sinuses and Orbits: The orbits appear normal. Minimal mucosal thickening of the left sphenoid sinus. Mastoid air cells and middle ear cavities appear clear. Bones: No evidence of fracture or calvarial defect. Other: Vascular calcifications of the cavernous ICA segments. CT ANGIOGRAM HEAD AND NECK: There is atherosclerotic plaque involving the aortic arch with no high-grade stenosis or dissection seen. 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 There is common origin to the carotid arteries. RIGHT: Common Carotid Artery: Patent without significant stenosis. Carotid Bulb: There is minimal atherosclerotic plaque at the carotid bifurcation. Stenosis at the bifurcation by NASCET criteria: No significant stenosis. Internal Carotid Artery: There is vascular plaque involving the cervical ICA as well as tortuosity of the cervical ICA with no high-grade stenosis or dissection seen. There is vascular plaque involving the cavernous space segment with no high-grade stenosis seen. No evidence of aneurysm along the intracranial ICA. External Carotid Artery: Unremarkable. Vertebral Artery: Patent without significant stenosis. No evidence of dissection. No aneurysm. Anterior Cerebral Artery: Patent without significant stenosis, aneurysm, or vascular malformation. Middle Cerebral Artery: The M1 and M2 segments appear normal. There is diminutive appearance to distal MCA vessels leading to region of encephalomalacia and gliosis. This is likely chronic. No aneurysm. Posterior Cerebral Artery: Patent without significant stenosis, aneurysm, or vascular malformation. Posterior Communicating Artery: Not definitively seen. No aneurysm. LEFT: Common Carotid Artery: Patent without significant stenosis. Carotid Bulb: There is minimal atherosclerotic plaque at the carotid bifurcation. Stenosis at the bifurcation by NASCET criteria: No significant stenosis. Internal Carotid Artery: Tortuosity of the cervical ICA with no high-grade stenosis or dissection seen. Vascular calcifications of the cavernous ICA segment with no high-grade stenosis seen. No evidence of aneurysm along the intracranial ICA. External Carotid Artery: Unremarkable. Vertebral Artery: The V1 through V3 segments appear patent with no high-grade stenosis seen. There is vascular calcification involving intradural V4 segment with no high-grade stenosis seen. No evidence of dissection. No aneurysm. Anterior Cerebral Artery: Patent without significant stenosis, aneurysm, or vascular malformation. Middle Cerebral Artery: The M1 and M2 segments appear normal. There is diminutive appearance to M3 frontal polar branch leading to area of encephalomalacia and gliosis. This is likely chronic. No aneurysm. Posterior Cerebral Artery: Patent without significant stenosis, aneurysm, or vascular malformation. Posterior Communicating Artery: Not definitively seen. No aneurysm. CENTRAL: Anterior Communicating Artery: Patent. No aneurysm. Basilar Artery: Patent without significant stenosis. No aneurysm. DURAL VENOUS SINUSES AND MAJOR CENTRAL VEINS: Patent. OTHER: The visualized pharynx and larynx appear normal. The major salivary glands appear normal. The visualized thyroid appears normal. No cervical lymphadenopathy. No necrotic lymph nodes. Soft tissues of the neck appear normal. Pleural-parenchymal scarring of the visualized lung apices. Minimal emphysematous changes. No acute fracture or traumatic subluxation. Multilevel degenerative changes. No suspicious osseous lesion seen. IMPRESSION: CT SCAN HEAD: 1. No definite acute infarct seen. If there is clinical concern for acute stroke or if symptoms persist, an MR brain could be considered to evaluate small or subtle pathology. ASPECTS: 10 right/10 left. 2. No acute intracranial hemorrhage, mass, hydrocephalus, or midline shift. 3. Large right MCA territory encephalomalacia and gliosis as well as small to moderate left MCA territory encephalomalacia and gliosis likely representing regions of prior infarct. Additional white matter changes seen that appear chronic suggesting potential sequela of chronic small vessel ischemic disease. CT ANGIOGRAM NECK: 1. The vasculature of the neck demonstrates no high-grade stenosis or definite dissection. CT ANGIOGRAM HEAD: 1. No large vessel occlusion. 2. No aneurysm. No significant stenosis. RADIA The call report notification system was initiated by Dr. Eduar Ayala at 08:27 PM on 10/19/2019. The above call report findings were discussed with Mook Huynh by Dr. Eduar Ayala at 08:31 PM on 10/19/2019.
[2019-10-19 20:30] LABS: CLARITY,URINE HAZY (CLEAR)
[2019-10-19 20:31] LABS: AMPHETAMINE SCREEN,URINE NEGATIVE (NEGATIVE); BENZODIAZEPINES SCREEN, URINE NEGATIVE (NEGATIVE); COCAINE SCREEN URINE NEGATIVE (NEGATIVE); METHADONE SCREEN, URINE NEGATIVE (NEGATIVE); METHAMPHETAMINES SCREEN, URINE NEGATIVE (NEGATIVE); OPIATE SCREEN, URINE NEGATIVE (NEGATIVE); OXYCODONE SCREEN, URINE NEGATIVE (NEGATIVE); PROPOXYPHENE SCREEN, URINE NEGATIVE (NEGATIVE); TRICYCLIC ANTIDEPRESSANT,URINE POSITIVE (NEGATIVE)
[2019-10-19 20:37] LABS: ACETAMINOPHEN < 10 ug/mL (10-30); ALBUMIN/GLOBULIN RATIO 1.2 (1.0-2.2); ALKALINE PHOSPHATASE 43 IU/L (42-121); ALT ALANINE AMINOTRANSFERASE 50 IU/L (10-60); AST ASPARTATE AMINOTRANSFERASE 42 IU/L (10-42); BILIRUBIN,TOTAL 0.2 mg/dL (0.2-1.0); BUN - BLOOD UREA NITROGEN 12 mg/dL (6-20); CALCIUM 8.6 mg/dL (8.5-10.3); CARBON DIOXIDE - CO2 27 mmol/L (21-32); CHLORIDE 90 mmol/L (101-111); CK- CREATINE KINASE 161 IU/L (22-269); CREATININE 0.7 mg/dL (0.6-1.2); GFR - MDRD 114 (>89); GLUCOSE 195 mg/dL (70-100); LIPASE 23 U/L (22-51); SALICYLATE < 6.0 mg/dL; SODIUM 130 mmol/L (135-145); TOTAL PROTEIN 7.3 g/dL (6.7-8.2)
[2019-10-19 20:40] LABS: AMORPHOUS SEDIMENT,UR Marked /LPF; BACTERIA,URINE Rare /HPF (None Seen); RBC,URINE 3 /HPF (0-5); SQUAMOUS EPITHELIAL CELL,UR MOD Squamous (<= Few)
[2019-10-20 01:22] VITALS: BP 107/56
== END 2019-10-20 06:17 | disposition home or self-care (01) ==
LOC: EDUNIT# → ED 19:27
DX: G45.9 Transient cerebral ischemic attack, unspecified (principal); I10 Essential (primary) hypertension; E11.9 Type 2 diabetes mellitus without complications; Z79.4 Long term (current) use of insulin; Z87.891 Personal history of nicotine dependence
CPT/HCPCS: 36415; 70450; 70496; 70498; 71045; 80053; 81001; 82550; 83605; 83690; 83880; 84443; 85025; 85610; 85730; 93005; 99285; 99291; Q9967; 80306; 80307; 80320; 80329; 81003; 87086

== ENCOUNTER 2019-10-20 06:15 | Outpatient (CLI) | payer MEDICARE | END 2019-10-20 06:16 | disposition home or self-care (01) | LOC: EMS 06:15 | PROVIDERS: ATTEND Surgery | DX: R53.1 Weakness (principal) | CPT/HCPCS: A0425; A0429 ==

== ENCOUNTER 2019-10-22 10:18 | Emergency (ER) | payer MEDICARE ==
--- NOTE | 2019-10-22 10:42 | ED Physician Documentation ---
PD HPI MALE - Stated complaint Stated Complaint: LEAKING CATHITER - Chief complaint Chief Complaint: General - History obtained from History obtained from: Patient - History of Present Illness Timing - onset: Today, Last night Timing - details: Abrupt onset (he had hartmann for past 1 1/2 months due to retention. Is to see Uroogist; saw PMD yesterday without change in therapy. Noted urine coming around catheter last night. No urine out in hartmann bag.) Associated symptoms: Hartmann problem (no urine out and feeling full bladder feeling.) Recently seen: Clinic Review of Systems Constitutional: denies: Fever, Chills Nose: denies: Rhinorrhea / runny nose, Congestion Throat: denies: Sore throat Respiratory: denies: Cough GI: denies: Nausea, Vomiting : reports: Unable to Void Skin: denies: Rash, Lesions PD PAST MEDICAL HISTORY - Past Medical History Cardiovascular: Hypertension, High cholesterol, [place], Other Respiratory: COPD, Sleep apnea, CPAP use Neuro: CVA Endocrine/Autoimmune: Type 2 diabetes GI: None : Other HEENT: Other Psych: None Musculoskeletal: None Derm: None - Past Surgical History Past Surgical History: Yes General: Appendectomy, Other - Present Medications Home Medications: Ambulatory Orders Medication Instructions Recorded Confirmed Chlorthalidone 25 mg PO DAILY 02/07/15 10/15/18 Clopidogrel Bisulfate [Plavix] 75 mg PO DAILY 02/07/15 10/15/18 Metformin HCl 1,000 mg PO BIDWM 02/07/15 10/15/18 atenoloL [Atenolol] 100 mg PO DAILY 02/07/15 10/15/18 Amitriptyline [Elavil] 50 mg PO QPM 07/31/15 10/15/18 Potassium Chloride 20 meq PO TIDWM 07/31/15 10/15/18 Simvastatin 80 mg PO QPM 07/31/15 10/15/18 lisinopriL [Lisinopril] 10 mg PO DAILY 07/31/15 10/15/18 Insulin Glargine [Lantus Solostar] 10 unit SUBQ DAILY PM 02/02/18 10/15/18 Glimepiride [Amaryl] 0 mg PO BID 10/15/18 10/15/18 - Allergies Allergies/Adverse Reactions: Allergies Allergy/AdvReac Type Severity Reaction Status Date / Time erythromycin base Allergy Hives Verified 10/22/19 10:26 - Social History Does the pt smoke?: No Smoking Status: Former smoker Does the pt drink ETOH?: No Does the pt have substance abuse?: No - Immunizations Immunizations are current?: Yes - POLST Patient has POLST: No PD ED PE NORMAL - Vitals Vital signs reviewed: Yes - General General: Alert and oriented X 3, Well developed/nourished - Neck Neck: Supple, no meningeal sign, No adenopathy - Cardiac Cardiac: RRR, No murmur - Respiratory Respiratory: Clear bilaterally - Abdomen Abdomen: Soft, No organomegaly, Other (bladder fullness and tenderness without percussion nor rebound tender. Bladder scanner about [address] and not draining. 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 Hartmann in place. ) - Back Back: No CVA TTP - Derm Derm: Normal color Results - Vitals Vitals: Vital Signs - 24 hr 10/22/19 10/22/19 10/22/19 10:26 10:45 12:52 Temperature 36.8 C 36.5 C 37.1 C Heart Rate 82 82 77 Respiratory 18 20 18 Rate Blood Pressure 142/68 H 111/60 136/73 H O2 Saturation 98 96 96 Oxygen O2 Source [With Activity] Room air O2 Source [Without Activity] Room air O2 Source Room air - Labs Labs: Laboratory Tests 10/22/19 12:25 Urine Color YELLOW Urine Clarity CLOUDY Urine pH 7.0 Ur Specific [place] 1.015 Urine Protein NEGATIVE Urine Glucose (UA) NEGATIVE Urine Ketones NEGATIVE Urine Occult Blood NEGATIVE Urine Nitrite NEGATIVE Urine Bilirubin NEGATIVE Urine Urobilinogen 0.2 (NORMAL) Ur Leukocyte Esterase MODERATE H Urine RBC 0-5 Urine WBC 11-25 H Ur Squamous Epith Cells RARE Squamous Urine Bacteria Many H Ur Microscopic Review INDICATED Urine Culture Comments INDICATED PD MEDICAL DECISION MAKING - ED course Complexity details: considered differential (he would prefer catheter to stay out, so pulled the clogged one and gave voiding trial, but unable to urinate himself and residual is about 350ml by bladder scanner. New hartmann placed by nursing with good output and relief of bladder pain. Will need to see Urologist and have bladder training/etc.), d/w patient Departure - Departure Disposition: 01 Home, Self Care Clinical Impression: Urinary retention Blocked urinary catheter Qualifiers: Encounter type: initial encounter Qualified Code(s): T83.098A - Other mechanical complication of other urinary catheter, initial encounter Condition: Stable Record reviewed to determine appropriate education?: Yes Instructions: ED Catheter Care Hartmann Follow-Up: COCO SARKAR [Primary Care Provider] - Comments: Catheter care as previous. Continue usual medicines. Follow-up with your primary care and urology regarding further care of the catheter and treatment plan for subsequent eventual removal. Discharge Date/Time: 10/22/19 13:01
[2019-10-22] MEDS ORDERED: LIDOCAINE 2% URO-JET 5 ML SYRINGE UR STA (11:59)
[2019-10-22 12:47] LABS: BILIRUBIN,URINE NEGATIVE (NEGATIVE); GLUCOSE, URINE (UA) NEGATIVE (NEGATIVE); KETONES,URINE (UA) NEGATIVE (NEGATIVE); LEUKOCYTE ESTERASE, URINE MODERATE (NEGATIVE); NITRITE,URINE NEGATIVE (NEGATIVE); OCCULT BLOOD,URINE NEGATIVE (NEGATIVE); PROTEIN,URINE NEGATIVE (NEGATIVE); UROBILINOGEN,URINE 0.2 (NORMAL) E.U./dL (NORMAL)
[2019-10-22 12:48] LABS: CLARITY,URINE CLOUDY (CLEAR)
[2019-10-22 12:52] VITALS: BP 136/73
[2019-10-22 12:56] LABS: BACTERIA,URINE Many /HPF (None Seen); RBC,URINE 0-5 /HPF (0-5); SQUAMOUS EPITHELIAL CELL,UR RARE Squamous (<= Few)
== END 2019-10-22 13:01 | disposition home or self-care (01) ==
LOC: ED 10:18
DX: T83.091A Other mechanical complication of indwelling urethral catheter, initial encounter (principal); Y84.6 Urinary catheterization as the cause of abnormal reaction of the patient, or of later complication, without mention of misadventure at the time of the procedure; R33.9 Retention of urine, unspecified; I10 Essential (primary) hypertension; E11.9 Type 2 diabetes mellitus without complications; Z79.4 Long term (current) use of insulin; Z86.73 Personal history of transient ischemic attack (TIA), and cerebral infarction without residual deficits; Z79.02 Long term (current) use of antithrombotics/antiplatelets; Z87.891 Personal history of nicotine dependence
CPT/HCPCS: 51702; 51798; 81001; 81003; 87086; 87181; 99282; 99283

== ENCOUNTER 2019-11-07 07:36 | Emergency (ER) | payer MEDICARE ==
--- NOTE | 2019-11-07 08:38 | ED Physician Documentation ---
PD HPI MALE - Stated complaint Stated Complaint: CATHETER LEAKING - Chief complaint Chief Complaint: General - History obtained from History obtained from: Patient - History of Present Illness Timing - onset: Today Timing - duration: Hours Timing - details: Gradual onset, Still present Associated symptoms: Indwelling catheter, Hartmann problem PD HPI MALE CONTRIB FACTORS: Indwelling catheter Similar symptoms before: Diagnosis (clogged hartmann) Recently seen: Emergency Dept - Additional information Additional information: 64-year-old male with a history of multiple CVAs, hypertension, type 2 diabetes and COPD has developed urinary retention and he has had an indwelling Hartmann catheter for the past 2 months. He was in the emergency department 2 weeks ago with a similar presentation where his catheter her urine is leaking around the catheter and he has bladder discomfort and there is no urine being produced. He does see a urologist at the [facility] and there is a plan to have a TURP done indeterminate in the future. He was not treated for infection at the direction of the urologist. Review of Systems Constitutional: denies: Fever, Chills, Myalgias Eyes: reports: Other (legally blind) Nose: denies: Congestion Throat: denies: Sore throat Cardiac: denies: Chest pain / pressure Respiratory: denies: Cough GI: denies: Vomiting : reports: Hartmann Problem PD PAST MEDICAL HISTORY - Past Medical History Past Medical History: Yes Cardiovascular: Hypertension, High cholesterol, [place], Other Respiratory: COPD, Sleep apnea, CPAP use Neuro: CVA Endocrine/Autoimmune: Type 2 diabetes GI: None : Other HEENT: Other Psych: None Musculoskeletal: None Derm: None - Past Surgical History Past Surgical History: Yes General: Appendectomy, Other - Present Medications Home Medications: Ambulatory Orders Medication Instructions Recorded Confirmed Chlorthalidone 25 mg PO DAILY 02/07/15 10/15/18 Clopidogrel Bisulfate [Plavix] 75 mg PO DAILY 02/07/15 10/15/18 Metformin HCl 1,000 mg PO BIDWM 02/07/15 10/15/18 atenoloL [Atenolol] 100 mg PO DAILY 02/07/15 10/15/18 Amitriptyline [Elavil] 50 mg PO QPM 07/31/15 10/15/18 Potassium Chloride 20 meq PO TIDWM 07/31/15 10/15/18 Simvastatin 80 mg PO QPM 07/31/15 10/15/18 lisinopriL [Lisinopril] 10 mg PO DAILY 07/31/15 10/15/18 Insulin Glargine [Lantus Solostar] 10 unit SUBQ DAILY PM 02/02/18 10/15/18 Glimepiride [Amaryl] 0 mg PO BID 10/15/18 10/15/18 Ciprofloxacin HCl [Cipro] 500 mg PO BID #14 tablet 11/07/19 - Allergies Allergies/Adverse Reactions: Allergies Allergy/AdvReac Type Severity Reaction Status Date / Time erythromycin base Allergy Hives Verified 11/07/19 07:48 - Social History Does the pt smoke?: No Smoking Status: Never smoker Does the pt drink ETOH?: No Does the pt have substance abuse?: No - Immunizations Immunizations are current?: Yes - POLST Patient has POLST: No PD ED PE NORMAL - Vitals Vital signs reviewed: Yes - General General: Alert and oriented X 3, No acute distress, Well developed/nourished - HEENT HEENT: Atraumatic - Cardiac Cardiac: RRR, No murmur - Respiratory Respiratory: No respiratory distress, Clear bilaterally - Abdomen Abdomen: Soft, Other (mild suprapubic tenderness ) - Back Back: No CVA TTP, No spinal TTP - Derm Derm: Normal color, Warm and dry, No rash - Neuro Neuro: Alert and oriented X 3, Normal speech Eye Opening: Spontaneous Motor: Obeys Commands Verbal: Oriented GCS Score: 15 - Psych Psych: Normal mood, Normal affect Results - Vitals Vitals: Vital Signs - 24 hr 11/07/19 11/07/19 07:48 09:00 Temperature 36.4 C L Heart Rate 73 71 Respiratory 18 16 Rate Blood Pressure 124/60 98/65 O2 Saturation 97 97 Oxygen O2 Source [With Activity] Room air O2 Source [Without Activity] Room air O2 Source Room air - Labs Labs: Laboratory Tests 11/07/19 09:21 Urine Color YELLOW Urine Clarity CLOUDY Urine pH 8.0 H Ur Specific [place] 1.010 Urine Protein NEGATIVE Urine Glucose (UA) NEGATIVE Urine Ketones NEGATIVE Urine Occult Blood MODERATE H Urine Nitrite POSITIVE H Urine Bilirubin NEGATIVE Urine Urobilinogen 0.2 (NORMAL) Ur Leukocyte Esterase LARGE H Ur Microscopic Review INDICATED Urine Culture Comments Not Reportable PD MEDICAL DECISION MAKING - ED course Complexity details: reviewed old records, reviewed results, re-evaluated patient, considered differential, d/w patient ED course: 64-year-old male with multiple CVAs who is wheelchair-bound and detention resident has an indwelling Hartmann catheter in place that is clogged with sediment this catheter is removed and replaced. This is the second time in 2 weeks that the catheter is been clogged with sediment and the patient does have known infection. Today we will treat with antibiotic. The patient does not appear septic or ill from the infection. Departure - Departure Disposition: 01 Home, Self Care Clinical Impression: Blocked urinary catheter Qualifiers: Encounter type: initial encounter Qualified Code(s): T83.098A - Other mechanical complication of other urinary catheter, initial encounter Urinary tract infection associated with catheterization of urinary tract Qualifiers: Indwelling urinary catheter type: indwelling urethral catheter Encounter type: initial encounter Qualified Code(s): T83.511A - Infection and inflammatory reaction due to indwelling urethral catheter, initial encounter Instructions: ED Catheter Care Hartmann, ED Retention Urinary Male, ED UTI Cystitis Male Follow-Up: C[facility] SARKAR [Primary Care Provider] - Prescriptions: Ciprofloxacin HCl [Cipro] 500 mg PO BID #14 tablet
[2019-11-07 09:54] LABS: BILIRUBIN,URINE NEGATIVE (NEGATIVE); GLUCOSE, URINE (UA) NEGATIVE (NEGATIVE); KETONES,URINE (UA) NEGATIVE (NEGATIVE); LEUKOCYTE ESTERASE, URINE LARGE (NEGATIVE); NITRITE,URINE POSITIVE (NEGATIVE); OCCULT BLOOD,URINE MODERATE (NEGATIVE); PROTEIN,URINE NEGATIVE (NEGATIVE); UROBILINOGEN,URINE 0.2 (NORMAL) E.U./dL (NORMAL)
[2019-11-07 09:55] LABS: CLARITY,URINE CLOUDY (CLEAR)
[2019-11-07 10:06] LABS: BACTERIA,URINE Moderate /HPF (None Seen); SQUAMOUS EPITHELIAL CELL,UR NONE SEEN (<= Few); WBC CLUMPS,URINE PRESENT
[2019-11-07 10:28] VITALS: BP 116/74
== END 2019-11-07 10:28 | disposition home or self-care (01) ==
LOC: ED 07:36
DX: T83.511A Infection and inflammatory reaction due to indwelling urethral catheter, initial encounter (principal); T83.098A Other mechanical complication of other urinary catheter, initial encounter; I10 Essential (primary) hypertension; E11.9 Type 2 diabetes mellitus without complications; Z79.4 Long term (current) use of insulin
CPT/HCPCS: 81001; 81003; 87077; 87086; 87181; 99283; 99284

== ENCOUNTER 2019-11-28 12:56 | Outpatient (CLI) | payer MEDICARE | END 2019-11-28 12:57 | disposition critical access hospital (66) | LOC: EMS 12:56 | PROVIDERS: ATTEND Surgery | DX: R53.1 Weakness (principal) | CPT/HCPCS: A0425; A0429 ==

== ENCOUNTER 2019-11-28 13:16 | Emergency (ER) | payer MEDICARE ==
[2019-11-28 13:51] LABS: BASOPHILS # (AUTO) 0.1 10^3/uL (0.0-0.1); BASOPHILS % (AUTO) 0.6 %; EOSINOPHILS # (AUTO) 0.4 10^3/uL (0.0-0.7); EOSINOPHILS % (AUTO) 3.5 %; HGB - HEMOGLOBIN 13.7 g/dL (14.0-18.0); LYMPHOCYTES # (AUTO) 3.3 10^3/uL (1.5-3.5); LYMPHOCYTES % (AUTO) 26.2 %; MEAN CORPUSCULAR HEMOGLOBIN 30.6 pg (27.0-31.0); MEAN CORPUSCULAR HGB CONC 34.3 g/dL (32.0-36.0); MEAN CORPUSCULAR VOLUME 89.3 fL (80.0-94.0); MEAN PLATELET VOLUME 8.9 fL (7.4-11.4); MONOCYTES # (AUTO) 0.8 10^3/uL (0.0-1.0); MONOCYTES % (AUTO) 6.8 %; NEUTROPHILS # (AUTO) 7.7 10^3/uL (1.5-6.6); NEUTROPHILS % (AUTO) 62.3 %; PLT - PLATELET COUNT 579 10^3/uL (130-450); RED BLOOD COUNT 4.48 10^6/uL (4.70-6.10); RED CELL DISTRIBUTION WIDTH 13.2 % (12.0-15.0); WHITE BLOOD COUNT 12.4 x10^3/uL (4.8-10.8)
[2019-11-28 14:06] LABS: ALBUMIN/GLOBULIN RATIO 1.2 (1.0-2.2); BILIRUBIN,TOTAL 0.6 mg/dL (0.2-1.0); CALCIUM 8.6 mg/dL (8.5-10.3); CREATININE 0.8 mg/dL (0.6-1.2); TOTAL PROTEIN 7.4 g/dL (6.7-8.2)
[2019-11-28] MEDS ORDERED: SODIUM CHLORIDE 0.9% 1,000 ML IV ONE (14:16)
--- NOTE | 2019-11-28 14:18 | ED Physician Documentation ---
History of Present Illness - Stated complaint Stated Complaint: WEAKNESS - Chief complaint Chief Complaint: General - History obtained from History obtained from: Patient - History of Present Illness Timing: Chronic Pain level max: 0 Pain level now: 0 - Additonal information Additional information: 64-year-old male lives at [facility]. He states he has become more and more weak over the past several months. Nothing acute today. He states that [facility] was concerned so they called 911 to have him brought to the emergency department. No fevers. No vomiting. No cough. No abdominal pain. No focal neurological deficits. He uses a wheelchair most of the time. Has a chronic indwelling catheter. Nothing makes it better or worse. No new medications. No medication changes. Review of Systems Constitutional: denies: Fever, Chills Cardiac: denies: Chest pain / pressure Respiratory: denies: Cough GI: denies: Vomiting, Diarrhea : reports: Other (Chronic indwelling catheter) Skin: denies: Rash Musculoskeletal: denies: Neck pain, Back pain Neurologic: denies: Headache PD PAST MEDICAL HISTORY - Past Medical History Cardiovascular: Hypertension, High cholesterol, [place], Other Respiratory: COPD, Sleep apnea, CPAP use Neuro: CVA Endocrine/Autoimmune: Type 2 diabetes GI: None : Other HEENT: Other Psych: None Musculoskeletal: None Derm: None - Past Surgical History Past Surgical History: Yes General: Appendectomy, Other - Present Medications Home Medications: Ambulatory Orders Medication Instructions Recorded Confirmed Chlorthalidone 25 mg PO DAILY 02/07/15 10/15/18 Clopidogrel Bisulfate [Plavix] 75 mg PO DAILY 02/07/15 10/15/18 Metformin HCl 1,000 mg PO BIDWM 02/07/15 10/15/18 atenoloL [Atenolol] 100 mg PO DAILY 02/07/15 10/15/18 Amitriptyline [Elavil] 50 mg PO QPM 07/31/15 10/15/18 Potassium Chloride 20 meq PO TIDWM 07/31/15 10/15/18 Simvastatin 80 mg PO QPM 07/31/15 10/15/18 lisinopriL [Lisinopril] 10 mg PO DAILY 07/31/15 10/15/18 Insulin Glargine [Lantus Solostar] 10 unit SUBQ DAILY PM 02/02/18 10/15/18 Glimepiride [Amaryl] 0 mg PO BID 10/15/18 10/15/18 Ciprofloxacin HCl [Cipro] 500 mg PO BID #14 tablet 11/07/19 Cefdinir 300 mg PO BID #20 capsule 11/28/19 - Allergies Allergies/Adverse Reactions: Allergies Allergy/AdvReac Type Severity Reaction Status Date / Time erythromycin base Allergy Hives Verified 11/28/19 13:31 - Social History Does the pt smoke?: No Smoking Status: Never smoker Does the pt drink ETOH?: No Does the pt have substance abuse?: No - Immunizations Immunizations are current?: Yes - POLST Patient has POLST: No PD ED PE NORMAL - Vitals Vital signs reviewed: Yes - General General: Alert and oriented X 3, No acute distress, Well developed/nourished - HEENT HEENT: PERRL, Moist mucous membranes - Neck Neck: Supple, no meningeal sign - Cardiac Cardiac: RRR, Strong equal pulses - Respiratory Respiratory: No respiratory distress, Clear bilaterally - Abdomen Abdomen: Soft, Non tender, Non distended - Back Back: No spinal TTP - Derm Derm: Warm and dry, No rash - Extremities Extremities: No calf tenderness / cord - Neuro Neuro: Alert and oriented X 3, No sensory deficit, Other (Decreased strength, equal bilateral lower extremity.) Eye Opening: Spontaneous Motor: Obeys Commands Verbal: Oriented GCS Score: 15 - Psych Psych: Normal mood, Normal affect Results - Vitals Vitals: Vital Signs - 24 hr 11/28/19 11/28/19 11/28/19 13:31 14:38 16:08 Temperature 36.9 C 36.5 C Heart Rate 77 72 77 Respiratory 17 16 16 Rate Blood Pressure 112/87 H 111/69 106/67 O2 Saturation 94 93 98 11/28/19 18:00 Temperature 36.9 C Heart Rate 77 Respiratory 15 Rate Blood Pressure 107/65 O2 Saturation 95 Oxygen O2 Source [] Room air O2 Source [] Room air O2 Source Room air - EKG (time done) 1323 Rate: Rate (enter#) (79) Rhythm: NSR [place]: Normal Intervals: Normal MS QRS: Normal Ischemia: Normal ST segments - Labs Labs: Laboratory Tests 11/28/19 11/28/19 11/28/19 13:22 13:28 13:28 WBC 12.4 H RBC 4.48 L Hgb 13.7 L Hct 40.0 L MCV 89.3 MCH 30.6 MCHC 34.3 RDW 13.2 Plt Count 579 H MPV 8.9 Neut # (Auto) 7.7 H Lymph # (Auto) 3.3 [place] # (Auto) 0.8 Eos # (Auto) 0.4 Baso # (Auto) 0.1 Absolute Nucleated RBC 0.00 Nucleated RBC % 0.0 Sodium 131 L Potassium 3.0 L Chloride 93 L Carbon Dioxide 26 Anion Gap 12.0 BUN 14 Creatinine 0.8 Estimated GFR (MDRD) 97 Glucose 181 H Calcium 8.6 Phosphorus 4.0 Magnesium 1.5 L Total Bilirubin 0.6 AST 36 ALT 40 Alkaline Phosphatase 49 Total Creatine Kinase 76 Total Protein 7.4 Albumin 4.0 Globulin 3.4 Albumin/Globulin Ratio 1.2 Lipase 22 Urine Color Urine Clarity Urine pH Ur Specific [place] Urine Protein Urine Glucose (UA) Urine Ketones Urine Occult Blood Urine Nitrite Urine Bilirubin Urine Urobilinogen Ur Leukocyte Esterase Urine RBC Urine WBC Ur Squamous Epith Cells Amorphous Sediment Urine Bacteria Ur Microscopic Review Urine Culture Comments 11/28/19 14:57 WBC RBC Hgb Hct MCV MCH MCHC RDW Plt Count MPV Neut # (Auto) Lymph # (Auto) [place] # (Auto) Eos # (Auto) Baso # (Auto) Absolute Nucleated RBC Nucleated RBC % Sodium Potassium Chloride Carbon Dioxide Anion Gap BUN Creatinine Estimated GFR (MDRD) Glucose Calcium Phosphorus Magnesium Total Bilirubin AST ALT Alkaline Phosphatase Total Creatine Kinase Total Protein Albumin Globulin Albumin/Globulin Ratio Lipase Urine Color YELLOW Urine Clarity HAZY Urine pH 8.5 H Ur Specific [place] 1.010 Urine Protein NEGATIVE Urine Glucose (UA) NEGATIVE Urine Ketones NEGATIVE Urine Occult Blood NEGATIVE Urine Nitrite POSITIVE H Urine Bilirubin NEGATIVE Urine Urobilinogen 0.2 (NORMAL) Ur Leukocyte Esterase SMALL H Urine RBC None Seen Urine WBC 11-25 H Ur Squamous Epith Cells NONE SEEN Amorphous Sediment Marked Urine Bacteria Few Ur Microscopic Review INDICATED Urine Culture Comments INDICATED PD MEDICAL DECISION MAKING - ED course Complexity details: reviewed results, re-evaluated patient, considered differential, d/w patient ED course: Patient given IV fluids, potassium replaced. Magnesium replaced. Antibiotics given for UTI. Patient does have a chronic indwelling catheter. He feels better. Will place on antibiotics for home and have him follow-up with his doctor. No sepsis. No altered mental status. Patient counseled regarding signs and symptoms for which I believe and urgent re-evaluation would be necessary. Patient with good understanding of and agreement to plan and is comfortable going home at this time This document was made in part using voice recognition software. While efforts are made to proofread this document, sound alike and grammatical errors may occur. Departure - Departure Disposition: Home, Self Care Clinical Impression: Weakness, Hypomagnesemia, Hypokalemia Urinary tract infection associated with catheterization of urinary tract Qualifiers: Indwelling urinary catheter type: unspecified Encounter type: initial encounter Qualified Code(s): T83.511A - Infection and inflammatory reaction due to indwelling urethral catheter, initial encounter Condition: Good Instructions: ED UTI Cystitis Male Follow-Up: your,doctor in 1 week [Other] Prescriptions: Cefdinir 300 mg PO BID #20 capsule Comments: Take all antibiotics until gone. Return if you worsen. Discharge Date/Time: 11/28/19 18:10
[2019-11-28 14:33] LABS: MAGNESIUM 1.5 mg/dL (1.7-2.8)
[2019-11-28] MEDS ORDERED: MAGNESIUM SULFATE 2 GRAM 2 GM/50 ML BAG IV ONE (14:46)
[2019-11-28] MEDS ORDERED: POTASSIUM CHLORIDE 20 MEQ TABLET PO STA (14:46)
[2019-11-28 15:07] LABS: BILIRUBIN,URINE NEGATIVE (NEGATIVE); CLARITY,URINE HAZY (CLEAR); GLUCOSE, URINE (UA) NEGATIVE (NEGATIVE); KETONES,URINE (UA) NEGATIVE (NEGATIVE); LEUKOCYTE ESTERASE, URINE SMALL (NEGATIVE); NITRITE,URINE POSITIVE (NEGATIVE); OCCULT BLOOD,URINE NEGATIVE (NEGATIVE); PH,URINE 8.5 PH (5.0-7.5); PROTEIN,URINE NEGATIVE (NEGATIVE); UROBILINOGEN,URINE 0.2 (NORMAL) E.U./dL (NORMAL)
[2019-11-28 15:15] LABS: AMORPHOUS SEDIMENT,UR Marked /LPF; BACTERIA,URINE Few /HPF (None Seen); RBC,URINE None Seen /HPF (0-5); SQUAMOUS EPITHELIAL CELL,UR NONE SEEN (<= Few)
[2019-11-28] MEDS ORDERED: cefTRIAXone 1 GM VIAL IVP STA (15:40)
[2019-11-28 18:09] VITALS: BP 107/65
== END 2019-11-28 18:10 | disposition home or self-care (01) ==
LOC: EDUNIT# → ED 13:16
DX: T83.511A Infection and inflammatory reaction due to indwelling urethral catheter, initial encounter (principal); E83.42 Hypomagnesemia; E87.6 Hypokalemia; R53.1 Weakness; I10 Essential (primary) hypertension; E11.9 Type 2 diabetes mellitus without complications; Z79.84 Long term (current) use of oral hypoglycemic drugs
CPT/HCPCS: 36415; 80053; 81001; 82550; 83690; 83735; 84100; 85025; 87077; 87086; 87181; 93005; 96365; 96375; 99284; A9270; 81003

== ENCOUNTER 2019-11-28 18:11 | Outpatient (CLI) | payer MEDICARE | END 2019-11-28 18:12 | disposition home or self-care (01) | LOC: EMS 18:11 | PROVIDERS: ATTEND Surgery | DX: N30.90 Cystitis, unspecified without hematuria (principal); Z74.01 Bed confinement status | CPT/HCPCS: A0425; A0428 ==